=== PATIENT | female | born 1960 | race Caucasian/White ===

== ENCOUNTER → 2016-04-25 | Outpatient (CLI) | payer BC ==
[~2016-04-25] MED LIST: ATOR-54 PO; FISHOIL PO; LEVO88TA PO; MULTTAB58 PO; PRM/45 PO; PROP120C PO
--- NOTE | 2016-04-26 14:21 | MAMMOGRAPHY REPORT ---
BILATERAL DIGITAL SCREENING MAMMOGRAM TOMOSYNTHESIS WITH CAD: 04/25/2016 CLINICAL HISTORY: Routine screening. Patient has no complaints. TECHNIQUE: Bilateral breast tomosynthesis in addition to standard 2D mammography was performed. Curr ent study was also evaluated with a Computer Aided Detection (CAD) system. COMPARISON: Comparison is made to exams dated: 04/23/2015 mammogram, 04/19/2013 mammogram, 11/12/2014 u ltrasound, 04/30/2014 mammogram, 04/30/2014 ultrasound, and 04/17/2012 mammogram - [facility]. BREAST COMPOSITION: There are scattered areas of fibroglandular density in both breasts. FINDINGS: There are stable benign coarse calcifications within the left breast. The parenchymal pat tern is similar to prior exams. There is stable asymmetry in the inferior middle one third of the r ight breast on the MLO view. No new suspicious mass, architectural distortion or cluster of microca lcifications is seen. IMPRESSION: ACR BI-RADS CATEGORY 1: NEGATIVE There is no mammographic evidence of malignancy. A 1 year screening mammogram is recommended. The p atient will receive written notification of the results. Approximately 10% of breast cancers are not detected with mammography. A negative mammographic repor t should not delay biopsy if a clinically suggestive mass is present. Syeda Molina M.D. ay/:04/26/2016 07:51:19 [place]man: Lisa KULKARNI(R)(M), [facility] letter sent: Normal 1/2 BI-RADS Code: ACR BI-RADS Category 1: Negative
== END | disposition home or self-care (01) ==
LOC: C.MAMM 08:49
PROVIDERS: ATTEND Obstetrics & Gynecology
DX: Z12.31 Encounter for screening mammogram for malignant neoplasm of breast (principal)

== ENCOUNTER → 2016-10-18 | Outpatient (CLI) | payer BC ==
[2016-10-18 12:12] LABS: BASO % 0.2 %; BASO ABS # 0.01 K/uL (0-0.2); COMPLETE YES; EOS % 3.8 %; HEMATOCRIT 40.1 % (37-47); IG% 0.2 %; LYMPH ABS # 1.95 K/uL (1.2-3.4); MEAN CELL VOLUME 91.3 fL (80-100); MEAN CORPUSCULAR HEMOGLOBIN 28.9 pg (25-34); MEAN CORPUSCULAR HGB CONC 31.7 g/dl (32-36); MEAN PLATELET VOLUME 10.5 fL (7.4-10.4); MONO % 11.8 %; PLATELET COUNT 175 K/uL (130-400); RED BLOOD COUNT 4.39 M/uL (4.2-5.4); WHITE BLOOD COUNT 4.24 K/uL (4.8-10.8)
[2016-10-18 12:26] LABS: ALT/SGPT 24 U/L (12-78); AST/SGOT 21 U/L (15-37); BLOOD UREA NITROGEN 18 mg/dl (7-18); BUN/CREATININE RATIO 26.8 (10-20); CALCIUM 8.7 mg/dl (8.5-10.1); CARBON DIOXIDE 29 mmol/L (21-32); CHLORIDE 107 mmol/L (98-107); CHOLESTEROL 160 mg/dl (0-200); CREATININE 0.66 mg/dl (0.60-1.20); GLUCOSE 82 mg/dl (70-99); POTASSIUM 4.4 mmol/L (3.5-5.1); SODIUM 141 mmol/L (136-145); TRIGLYCERIDES 86 mg/dl (0-150); VERY LOW DENSITY LIPOPROT CALC 17 mg/dl
[2016-10-18 12:36] LABS: CHOLESTEROL/HDL RATIO 2.6; HDL CHOLESTEROL 61 mg/dl; LDL CHOLESTEROL CALCULATED 82 mg/dl
== END | disposition home or self-care (01) ==
LOC: C.LABBFT 07:39
PROVIDERS: ATTEND Internal Medicine
DX: E78.5 Hyperlipidemia, unspecified (principal); D72.819 Decreased white blood cell count, unspecified; E03.9 Hypothyroidism, unspecified

== ENCOUNTER → 2017-04-20 | Outpatient (CLI) | payer BC ==
[2017-04-20 12:40] LABS: HEMATOCRIT 40.7 % (37-47); HEMOGLOBIN 13.3 g/dL (12.0-16.0); MEAN CELL VOLUME 90.2 fL (80-100); MEAN CORPUSCULAR HEMOGLOBIN 29.5 pg (25-34); MEAN CORPUSCULAR HGB CONC 32.7 g/dl (32-36); MEAN PLATELET VOLUME 10.4 fL (7.4-10.4); PLATELET COUNT 180 K/uL (130-400); RED CELL DISTRIBUTION WIDTH CV 13.9 % (11.5-14.5); RED CELL DISTRIBUTION WIDTH SD 45.9 fL (36.4-46.3); WHITE BLOOD COUNT 4.39 K/uL (4.8-10.8)
[2017-04-20 12:48] LABS: BLOOD UREA NITROGEN 17 mg/dl (7-18); CALCIUM 8.6 mg/dl (8.5-10.1); CARBON DIOXIDE 27 mmol/L (21-32); CHOLESTEROL 165 mg/dl (0-200); CREATININE 0.62 mg/dl (0.60-1.20); GLUCOSE 88 mg/dl (70-99); SODIUM 139 mmol/L (136-145)
[2017-04-20 12:59] LABS: LDL CHOLESTEROL CALCULATED 85 mg/dl
== END | disposition home or self-care (01) ==
LOC: C.LABBFT 07:50
PROVIDERS: ATTEND Internal Medicine
DX: M25.50 Pain in unspecified joint (principal); E78.5 Hyperlipidemia, unspecified; E03.9 Hypothyroidism, unspecified; D72.819 Decreased white blood cell count, unspecified

== ENCOUNTER → 2017-04-28 | Outpatient (CLI) | payer BC ==
--- NOTE | 2017-05-01 07:43 | MAMMOGRAPHY REPORT ---
BILATERAL DIGITAL SCREENING MAMMOGRAM TOMOSYNTHESIS WITH CAD: 04/28/2017 CLINICAL HISTORY: Routine screening. Patient has no complaints. TECHNIQUE: Breast tomosynthesis in addition to standard 2D mammography was performed. Current study was also evaluated with a Computer Aided Detection (CAD) system. COMPARISON: Comparison is made to exams dated: 04/25/2016 mammogram, 04/23/2015 mammogram, 11/12/2014 ul trasound, 05/20/2014 mammogram, 04/22/2014 mammogram, and 04/19/2013 mammogram - [facility]. BREAST COMPOSITION: There are scattered areas of fibroglandular density in both breasts. FINDINGS: There is a possible 8 mm mass within the left superior breast at approximately 12 to 1:00 middle depth, for which spot compression tomosynthesis views and possible breast ultrasound are recom mended for further evaluation. The remainder of both breasts are stable compared to prior exams, without suspicious masses, calcific ations, or areas of architectural distortion noted. IMPRESSION: ACR BI-RADS CATEGORY 0: INCOMPLETE EVALUATION: NEED ADDITIONAL IMAGING EVALUATION Possible left breast mass, for which additional imaging evaluation is recommended. The patient will be called to schedule an appointment. Approximately 10% of breast cancers are not detected with mammography. A negative mammographic report should not delay biopsy if a clinically suggestive mass is present. Iona Gaming M.D. /:04/28/2017 15:56:45 Hospital Cna: Lisa VORA)(Krishan), [facility] letter sent: Addl Imaging 0 BI-RADS Code: ACR BI-RADS Category 0: Incomplete Evaluation: Need Additional Imaging Evaluation
== END | disposition home or self-care (01) ==
LOC: C.MAMM 08:58
PROVIDERS: ATTEND Obstetrics & Gynecology
DX: Z12.31 Encounter for screening mammogram for malignant neoplasm of breast (principal)

== ENCOUNTER → 2017-05-05 | Outpatient (CLI) | payer BC ==
--- NOTE | 2017-05-05 13:26 | MAMMOGRAPHY REPORT ---
UNILATERAL LEFT DIGITAL DIAGNOSTIC MAMMOGRAM TOMOSYNTHESIS AND TARGETED LEFT ULTRASOUND: 05/05/2017 CLINICAL HISTORY: Callback from screening mammogram for left breast asymmetry. TECHNIQUE: Breast tomosynthesis in addition to standard 2D mammography was performed. Spot compress ion left CC and MLO 2-D and tomosynthesis images were obtained. COMPARISON: Comparison is made to exams dated: 04/28/2017 mammogram, 04/25/2016 mammogram, 04/23/2015 m ammogram, 11/12/2014 ultrasound, 11/12/2014 mammogram, and 05/20/2014 ultrasound - [facility] enter. BREAST COMPOSITION: There are scattered areas of fibroglandular density in the left breast. FINDINGS: Spot compression views of the left breast demonstrate a persistent nodular focal asymmetry measuring approximately 7 mm in the left superior breast at approximately 12:00. Targeted ultrasound was performed of the left breast in the region of the mammographic asymmetry. In the left breast at 11:00, 4 cm from the nipple, there is a round anechoic circumscribed benign simpl e cyst which measures 6 x 4 x 6 mm. This likely corresponds with the mammographic asymmetry. A few nodular isoechoic areas are also seen, including a focal 5 x 4 mm isoechoic mass in the left 12:00 pe riareolar breast and a 4 x 3 mm isoechoic mass in the left 12:00 breast, 3 cm from the nipple. The i soechoic findings are probably benign and likely represent fibrocystic changes. IMPRESSION: ACR-BI-RADS CATEGORY 3: PROBABLY BENIGN, TARGETED ULTRASOUND ACR-BI-RADS CATEGORY 3: PRO BABLY BENIGN 1. Benign 6 mm simple cyst in the left 11:00 breast on ultrasound, which likely corresponds with the mammographic asymmetry. Recommend follow-up diagnostic mammograms of the left breast in 6 months to reevaluate. 2. Two small benign-appearing isoechoic masses in the left 12:00 breast on ultrasound, which are prob ably benign and likely represent fibrocystic changes. Recommend follow-up diagnostic tomosynthesis m ammograms and repeat ultrasound of the left breast in 6 months to confirm stability. The patient has been verbally notified of the results. Approximately 10% of breast cancers are not detected with mammography. A negative mammographic report should not delay biopsy if a clinically suggestive mass is present. Iona Gaming M.D. /:05/05/2017 10:58:47 Boat Mechanic: Lisa Castillo, [facility] letter sent: Follow Up Recommended 3 BI-RADS Code: ACR-BI-RADS Category 3: Probably Benign Ultrasound BI-RADS: ACR-BI-RADS Category 3: Pr obably Benign
== END | disposition home or self-care (01) ==
LOC: C.MAMM 08:35
PROVIDERS: ATTEND Obstetrics & Gynecology
DX: R92.8 Other abnormal and inconclusive findings on diagnostic imaging of breast (principal); N63.20 Unspecified lump in the left breast, unspecified quadrant

== ENCOUNTER → 2017-06-16 | Outpatient (CLI) | payer BC | END | disposition home or self-care (01) | LOC: C.LAB 11:24 | PROVIDERS: ATTEND Internal Medicine | DX: E03.9 Hypothyroidism, unspecified (principal) ==

== ENCOUNTER → 2017-11-02 | Outpatient (CLI) | payer BC ==
[2017-11-02 09:52] LABS: HEMATOCRIT 41.1 % (37-47); HEMOGLOBIN 13.7 g/dL (12.0-16.0); MEAN CELL VOLUME 87.3 fL (80-100); MEAN CORPUSCULAR HEMOGLOBIN 29.1 pg (25-34); MEAN CORPUSCULAR HGB CONC 33.3 g/dl (32-36); MEAN PLATELET VOLUME 10.5 fL (7.4-10.4); PLATELET COUNT 190 K/uL (130-400); RED CELL DISTRIBUTION WIDTH CV 15.4 % (11.5-14.5); RED CELL DISTRIBUTION WIDTH SD 49.5 fL (36.4-46.3)
[2017-11-02 10:28] LABS: ALT/SGPT 25 U/L (12-78); AST/SGOT 26 U/L (15-37); BLOOD UREA NITROGEN 15 mg/dl (7-18); CALCIUM 8.4 mg/dl (8.5-10.1); CARBON DIOXIDE 28 mmol/L (21-32); CHOLESTEROL 152 mg/dl (0-200); GLUCOSE 87 mg/dl (70-99); LDL CHOLESTEROL CALCULATED 77 mg/dl; POTASSIUM 4.5 mmol/L (3.5-5.1); SODIUM 139 mmol/L (136-145)
== END | disposition home or self-care (01) ==
LOC: C.LAB 07:53
PROVIDERS: ATTEND Internal Medicine
DX: E78.5 Hyperlipidemia, unspecified (principal); D72.819 Decreased white blood cell count, unspecified; E03.9 Hypothyroidism, unspecified

== ENCOUNTER → 2017-11-02 | Outpatient (CLI) | payer BC ==
--- NOTE | 2017-11-02 16:01 | MAMMOGRAPHY REPORT ---
UNILATERAL LEFT DIGITAL DIAGNOSTIC MAMMOGRAM TOMOSYNTHESIS WITH CAD AND LEFT ULTRASOUND: 11/02/2017 CLINICAL HISTORY: 6 Month Follow-up Left. TECHNIQUE: The study was acquired using full field digital technology and interpreted from soft copy. Breast tomosynthesis in addition to standard 2D mammography was performed. Current study was also ev aluated with a Computer Aided Detection (CAD) system. Left CC and MLO 2D and tomosynthesis images we re obtained. COMPARISON: Comparison is made to exams dated: 05/05/2017 mammogram, 04/28/2017 mammogram, 04/25/2016 m ammogram, 04/23/2015 mammogram, 11/12/2014 mammogram, and 05/05/2017 ultrasound - [facility] enter. BREAST COMPOSITION: There are scattered areas of fibroglandular density in left breast. FINDINGS: The previously described nodular focal asymmetry within the left breast at approximately 12 :00 is decreased in size compared to the April 2017 exam and is no longer clearly evident mammograp hically and is therefore benign given the interval decrease. The remainder of the left breast is sta ble mammographically compared to prior exams, without suspicious masses, calcifications, or areas of architectural distortion noted. Targeted ultrasound was performed of the area of the previously seen cyst. In the left breast at 11: 00, 4 cm from the nipple, again noted is a round anechoic cyst, which is decreased in size compared t o the April 2017 exam, currently measuring 3 x 2 mm, previously measuring 6 x 6 mm. This correspon ds with the mammographic asymmetry and is compatible with a benign resolving cyst. Focal benign-appe aring isoechoic nodular areas in the left 12:00 breast are stable, including a nodular 4 x 5 mm area in the left 12:00 periareolar breast and a 2 x 3 mm area in the left 12:00 breast, 3 cm from the nipp le. Given the morphology and benign stability, the areas are benign. IMPRESSION: ACR BI-RADS CATEGORY 2: BENIGN, ULTRASOUND ACR BI-RADS CATEGORY 2: BENIGN The mammographic asymmetry is decreased in size compared to the April 2017 exam, and is benign and compatible with a resolving cyst. There is no mammographic or sonographic evidence of malignancy. Re turn to annual mammogram screening schedule is recommended, due April 2018. The patient has been verbally notified of the results. Some breast cancers are not detected with mammography. A negative mammographic report should not sunitha y biopsy if a clinically suggestive mass is present. Iona Gaming M.D. ah/:11/02/2017 08:44:52 Automat Watcher: RT Keshav(R)(M), [facility] letter sent: Normal 04/11 OVERALL STUDY BIRADS: 2 Benign
== END | disposition home or self-care (01) ==
LOC: C.MAMM 08:10
PROVIDERS: ATTEND Obstetrics & Gynecology
DX: N64.89 Other specified disorders of breast (principal)